=== PATIENT | male | born 1965 ===

== ENCOUNTER → 2021-11-10 | Outpatient (CLI) | payer MEDICARE ==
[~2021-11-10] MED LIST: ALPR0.5T7 PO; AMLO-250 PO; ATOR40TA70 PO; CANA100T PO; CARV12.53 PO; FLUT12AE4 IH; FURO40TA4 PO; HYDR25TA4 PO; INSU100I14 SQ; INSU100I29 SQ; LISI40TA9 PO; PANT40TA52 PO; PRED10TA22 PO
== END ==
LOC: WOUNDCARE 09:05
PROVIDERS: ATTEND Family Medicine
DX: I89.0 Lymphedema, not elsewhere classified (principal); L97.212 Non-pressure chronic ulcer of right calf with fat layer exposed; L97.221 Non-pressure chronic ulcer of left calf limited to breakdown of skin; E11.622 Type 2 diabetes mellitus with other skin ulcer; I87.333 Chronic venous hypertension (idiopathic) with ulcer and inflammation of bilateral lower extremity; E11.65 Type 2 diabetes mellitus with hyperglycemia; K70.30 Alcoholic cirrhosis of liver without ascites; F10.188 Alcohol abuse with other alcohol-induced disorder; G90.09 Other idiopathic peripheral autonomic neuropathy; E66.01 Morbid (severe) obesity due to excess calories; M62.81 Muscle weakness (generalized); Z68.43 Body mass index [BMI] 50.0-59.9, adult
CPT/HCPCS: 87070; 87205; A6197; G0463; 87077; 87186; 99215

== ENCOUNTER → 2021-11-10 | Outpatient (CLI) | payer MEDICARE ==
[2021-11-10 11:44] LABS: BASOPHILS % (AUTO) 1 % (0-10); EOSINOPHILS # (AUTO) 0.1 10^3/uL (0.0-0.3); EOSINOPHILS % (AUTO) 3 % (0-10); HEMATOCRIT 41 % (40-54); HEMOGLOBIN 13.7 g/dL (13.3-17.7); LYMPHOCYTES # (AUTO) 0.8 10^3/uL (1.0-4.0); LYMPHOCYTES % (AUTO) 16 % (12-44); MEAN CORPUSCULAR HEMOGLOBIN 32 pg (25-34); MEAN CORPUSCULAR HGB CONC 33 g/dL (32-36); MEAN CORPUSCULAR VOLUME 96 fL (80-99); MONOCYTES # (AUTO) 0.5 10^3/uL (0.0-1.0); MONOCYTES % (AUTO) 11 % (0-12); NEUTROPHILS # (AUTO) 3.3 10^3/uL (1.8-7.8); NEUTROPHILS % (AUTO) 69 % (42-75); PLATELET COUNT 311 10^3/uL (130-400); WHITE BLOOD COUNT 4.8 10^3/uL (4.3-11.0)
[2021-11-10 11:54] LABS: ALBUMIN 3.8 GM/DL (3.2-4.5); BILIRUBIN,TOTAL 0.6 MG/DL (0.1-1.0); CALCIUM 9.1 MG/DL (8.5-10.1); CREATININE SERUM 0.74 MG/DL (0.60-1.30); POTASSIUM 4.4 MMOL/L (3.6-5.0); TOTAL PROTEIN 6.6 GM/DL (6.4-8.2)
--- NOTE | 2021-11-10 17:05 | Diagnostic Imaging Report ---
PROCEDURE: US Bilateral lower extremity arterial. TECHNIQUE: Multiple real-time grayscale images are obtained through both lower extremity arterial systems with color Doppler imaging and color Doppler spectral analysis. INDICATION: Ulcerations FINDINGS: There are abnormal monophasic waveforms seen throughout the bilateral lower extremity arteries. There is abrupt decrease in velocity seen within the left posterior tibial artery. There is mild scattered plaque seen. There is diffuse subcutaneous edema seen throughout the bilateral lower extremities. Within the right groin, there is a heterogeneous lesion measuring 2.9 x 0.9 x 2.6 cm. IMPRESSION: 1. Abnormal monophasic waveforms throughout both lower extremities suggestive of a more proximal stenosis. 2. There is an abrupt decrease in velocity seen within the left posterior tibial artery which suggests an additional focal area of hemodynamically significant stenosis. 3. A 2.9 cm possibly prominent lymph node within the right groin. Dictated by: Dictated on workstation # [id number]
== END ==
LOC: LAB 11:04
PROVIDERS: ATTEND Family Medicine
DX: L97.212 Non-pressure chronic ulcer of right calf with fat layer exposed (principal); L97.221 Non-pressure chronic ulcer of left calf limited to breakdown of skin; I89.0 Lymphedema, not elsewhere classified; E11.622 Type 2 diabetes mellitus with other skin ulcer; I87.333 Chronic venous hypertension (idiopathic) with ulcer and inflammation of bilateral lower extremity; E11.65 Type 2 diabetes mellitus with hyperglycemia; K70.30 Alcoholic cirrhosis of liver without ascites; F10.188 Alcohol abuse with other alcohol-induced disorder; G90.09 Other idiopathic peripheral autonomic neuropathy; E66.01 Morbid (severe) obesity due to excess calories; M62.81 Muscle weakness (generalized)
CPT/HCPCS: 36415; 80053; 82607; 82746; 84134; 85025; 93925

== ENCOUNTER 2021-11-14 12:20 | Day surgery (SDC) | payer MEDICARE ==
[~2021-11-14] VITALS: Ht 162.6 cm; Wt 124.4 kg
[2021-11-14] VITALS (10 sets, daily range): BP systolic 149–245; BP diastolic 83–158
[2021-11-14] MEDS ORDERED: NS IV 1000 ML 1,000 ML IV SCH (12:30)
[2021-11-14] MEDS ORDERED: LIDOCAINE 1% INJ 20 ML VIAL ONE (12:30)
[2021-11-14] MEDS ORDERED: HEParin (CATH LAB) 2,000 ML IV ONE (12:31)
[2021-11-14] MEDS ORDERED: NS IV 1000 ML 1,000 ML ONE (12:31)
--- NOTE | 2021-11-14 13:03 | Diagnostic Imaging Report ---
EXAMINATION: Chest, one view. HISTORY: Heart catheterization. COMPARISON: 02/28/2020. FINDINGS: Heart size and pulmonary vasculature are normal. The lungs are clear without consolidation, pleural effusion, or pneumothorax. Surgical changes of the cervical spine. IMPRESSION: 1. No acute radiographic abnormality in the chest. Dictated by: Dictated on workstation # [id number]
[2021-11-14 13:04] LABS: HEMATOCRIT 42 % (40-54); HEMOGLOBIN 13.8 g/dL (13.3-17.7); MEAN CORPUSCULAR HEMOGLOBIN 32 pg (25-34); MEAN CORPUSCULAR HGB CONC 33 g/dL (32-36); MEAN CORPUSCULAR VOLUME 97 fL (80-99); WHITE BLOOD COUNT 5.4 10^3/uL (4.3-11.0)
[2021-11-14] MEDS ORDERED: AMLO-250 PO (13:10)
[2021-11-14] MEDS ORDERED: CANA300T PO (13:10)
[2021-11-14] MEDS ORDERED: INSU100I29 SQ (13:10)
[2021-11-14] MEDS ORDERED: FURO40TA4 PO (13:10)
[2021-11-14] MEDS ORDERED: DOXY100T2 PO (13:10)
[2021-11-14 13:15] LABS: POTASSIUM 4.5 MMOL/L (3.6-5.0)
[2021-11-14 13:16] LABS: ALBUMIN 3.9 GM/DL (3.2-4.5)
[2021-11-14 13:17] LABS: CALCIUM 9.1 MG/DL (8.5-10.1)
[2021-11-14 13:18] LABS: PROTHROMBIN TIME PATIENT 13.9 SEC (12.2-14.7); TOTAL PROTEIN 6.9 GM/DL (6.4-8.2)
[2021-11-14 13:20] LABS: BILIRUBIN,TOTAL 0.8 MG/DL (0.1-1.0)
[2021-11-14 13:22] LABS: CREATININE SERUM 0.77 MG/DL (0.60-1.30)
[2021-11-14] MEDS ORDERED: MIDAZOLAM 5 MG/5 ML (VERSED) VIAL ONE ×2 (13:30→14:45)
[2021-11-14] MEDS ORDERED: fentaNYL INJ 100 MCG/2 ML AMP ONE ×3 (13:30→16:14)
[2021-11-14 13:31] LABS: PLATELET COUNT 180 10^3/uL (130-400)
[2021-11-14] MEDS ORDERED: PATIENT MAY USE OWN MEDS, ALL PO SCH (15:30)
--- NOTE | 2021-11-14 15:32 | Discharge Inst-Post CATH ---
Discharge Inst-CATH/EP Problems Reviewed?: Yes Post Cardiac Cath/EP D/C Inst Follow Up/Plan Appointment with Dr. Romero's office in 1 month <b>CARDIAC CATH/EP PROCEDURE DISCHARGE INSTRUCTIONS</b> ACTIVITY * Go Home directly and rest. * Limit activity of the leg (or wrist if it was used) for 7 days including aerobics, swimming, jogging, bicycling, etc. * Restrict stair-climbing for 7 days if possible, if not, climb up with your non-cath leg, then bring together on the same step. * Avoid lifting, pushing, pulling or excessive movement of the affected extremity for 7 days. * Customary sexual activity may be resumed after 2 days-use caution not to use a position that strains or causes pain to the affected extremity. * No driving for 24 hours. * NO SMOKING. * Avoid straining for bowel movements for 7 days. * Gentle walking on level ground is allowed. * Returning to work will depend on the type of procedure and the results. Your doctor will discuss this with you. CALL YOUR DOCTOR FOR ANY OF THE FOLLOWING: *If bleeding from the puncture site occurs- Apply gentle pressure to site with clean cloth and call your doctor or EMS. * If a knot or lump forms under the skin, increases in size, or causes pain. * If bruising appears to be worsening or moving further down your leg instead of disappearing. * Temperature above 101 F. CARE OF YOUR GROIN INCISION; * Bruising or purple discoloration of the skin near the puncture site is common. * You may shower only, no bathtub bathing for 5 days. Be careful to avoid slipping as your leg may feel stiff. * If a closure device was used on your femoral artery, please see the attached guide regarding care of the device and your leg. * Leave dressing on FOR 24 hours. CARE OF YOUR WRIST INCISION; * Bruising or purple discoloration of the skin near the puncture site is common. * You may shower. * DO NOT submerge wrist. * Leave dressing on FOR 24 hours. MARKO ROMERO MD Nov 14, 2021 15:32
--- NOTE | 2021-11-14 15:36 | Peripheral Report ---
Peripheral Report Physician (s)/Branch Officer (s) Physician MARKO FREIRE MD Pre-Procedure Diagnosis Pre-Procedure Diagnosis: Nonhealing foot ulcers Post-Procedure Note Procedure Start Date: Nov 14, 2021 Name of Procedure: Bilateral lower extremities runoff Third order Additional imaging x 2 Findings/Procedure Note PROCEDURE NOTE: 56 years old gentleman with nonhealing ulcers, morbid obesity, BMI 64. Had an abnormal ASHLY and referred for evaluation. I scheduled him for peripheral angiogram After explaining the procedure to the patient, all pros and cons were explained, all questions were answered. The patient signed the consent and then he was placed on the cardiac catheterization laboratory. The patient was placed on the cardiac catheterization laboratory. Groin was prepped SL fashion local anesthesia was used. Sheath placed in the left femoral artery, runoff to the left leg was done through the sheath then I performed DSA imaging to the trifurcation. Rim catheter was used to cross over then a straight catheter advanced to the right common femoral artery and I did runoff to the right leg then I advanced the straight catheter down to the tibioperoneal trunk and did DSA imaging at the level of the trifurcation and then at the level of the foot. The catheter was removed and sheath was removed with closure device deployed FINDINGS: Left lower extremity: Mild to moderate disease in the left SFA and popliteal artery, DSA imaging showed good flow in the anterior and posterior tibial artery sluggish flow in the peroneal artery smaller arteries. Right lower extremity: Mild to moderate disease in the mid and distal right SFA, below the trifurcation there is mild small vessel disease nonobstructive disease down to the ankle. CONCLUSIONS: 1. Mild to moderate disease bilaterally nonobstructive disease down to the foot bilaterally with small vessel disease creating slow flow. DISCUSSION AND RECOMMENDATIONS: His nonhealing foot ulcer is probably due to small vessel disease, we discussed weight loss, starting exercise program. Maximizing medical therapy Anesthesia Type: Conscious Sedation Estimated blood loss (mL): 15 ml Contrast Amount: 60 ml Total Radiation Dose: 248 mGy Post-Procedure Diagnosis Post-operative diagnosis: Nonhealing foot ulcer Peripheral arterial disease Hypertension Hyperlipidemia MARKO FREIRE MD Nov 14, 2021 15:36
[2021-11-14] MEDS: NS IV 1000 ML 1,000 ML IV SCH (15:45)
[2021-11-14] MEDS ORDERED: hydrALAZINE (APESOLINE) 20 MG/ML VIAL ONE (16:06)
--- NOTE | 2021-11-14 16:06 | Conscious Sedation/ASA ---
Conscious Sedation Pre-Proced Time 12:30 ASA Score 3 For ASA 3 and 4: Consider anesthesia and medical clearance. Also, for patients with a history of failed moderate sedation consider anesthesia. Airway Lungs Heart ASA score ASA 1: a normal healthy patient ASA 2: a patient with a mild systemic disease (mid diabetes, controlled hypertension, obesity x ASA 3: a patient with a severe systemic disease that limits activity (angina, COPD, prior Myocardial infarction) ASA 4: a patient with an incapacitating disease that is a constant threat to life (CHF, renal failure) ASA 5: a moribund patient not expected to survive 24 hrs. (ruptured aneurysm) ASA 6: a declared brain- patient whose organs are being harvested. For emergent operations, add the letter E after the classification Mallampati Classification Grade 3 Sedation Plan Analgesia, Amnesia, Plan communicated to team members, Discussed options with patient/fam, Discussed risks with patient/fam The patient is an appropriate candidate to undergo the planned procedure, sedation, and anesthesia. The patient immediately re-assessed prior to indication. MARKO FREIRE MD Nov 14, 2021 16:06
[2021-11-14] MEDS ORDERED: hydrALAZINE (APESOLINE) 20 MG/ML VIAL IV ONE (16:15)
[2021-11-14] MEDS: fentaNYL INJ 100 MCG/2 ML AMP IVP PRN ×2 (16:17→20:38)
[2021-11-14] MEDS: lisINopril 40 MG (PRINIVIL) TABLET PO SCH (16:52)
[2021-11-14] MEDS: amLODIPine 5 MG (NORVASC) TAB PO SCH (16:52)
[2021-11-14] MEDS ORDERED: cloNIDine 0.1 MG (CATAPRES) TAB PO ONE (21:45)
[2021-11-14] MEDS ORDERED: meTOprolol 5 MG/5 ML (LOPRESSOR) VIAL IV ONE (21:45)
[2021-11-15] VITALS: BP 154/94
[2021-11-15] MEDS: fentaNYL INJ 100 MCG/2 ML AMP IVP PRN (02:34)
[2021-11-15] MEDS: NS IV 1000 ML 1,000 ML IV SCH (02:38)
[2021-11-15 04:00] VITALS: BP 159/97
[2021-11-15] MEDS: amLODIPine 5 MG (NORVASC) TAB PO SCH (07:40)
[2021-11-15] MEDS: lisINopril 40 MG (PRINIVIL) TABLET PO SCH (07:40)
[2021-11-15 08:00] VITALS: BP 169/91
[2021-11-15] MEDS ORDERED: AMLO-251 PO (08:38)
[2021-11-15] MEDS ORDERED: lisINopril 40 MG (PRINIVIL) TABLET PO SCH (09:00)
[2021-11-15] MEDS ORDERED: NON-FORMULARY MEDICATION 1 EA EA (Canagliflozin (Invokana) 300 MG) PO SCH (09:00)
[2021-11-15] MEDS ORDERED: DOXYCYCLINE 100 MG (VIBRAMYCIN) TABLET PO SCH (09:00)
[2021-11-15] MEDS ORDERED: FUROSEMIDE 40 MG (LASIX) TAB PO SCH (09:00)
[2021-11-15] MEDS ORDERED: amLODIPine 5 MG (NORVASC) TAB PO SCH (09:00)
[2021-11-15 10:00] VITALS: BP 169/91
[2021-11-15] MEDS ORDERED: inSUlin ASPART (NovoLOG) 1 UNIT/0.01 ML (CHARGE PER UNIT) SC SCH (12:00)
--- NOTE | 2021-11-15 13:46 | Cardiology Progress Note ---
Subjective Date Seen by Provider: Nov 15, 2021 Time Seen by Provider: 08:00 Subjective/Events-last exam Patient was seen and evaluated at bedside this morning He was feeling well, groin is healing well Blood pressure is poorly controlled Review of Systems General: No Chills, No Night Sweats, No Fatigue, No Malaise, No Appetite, No Other HEENT: No Head Aches, No Visual Changes, No Eye Pain, No Ear Pain, No Dysphasia, No Sinus Congestion, No Post Nasal Drip, No Sore Throat, No Other Pulmonary: No Dyspnea, No Cough, No Pleuritic Chest Pain, No Other Cardiovascular: No: Chest Pain, Palpitations, Orthopnea, Paroxysmal Noc. Dyspnea, Edema, Lt Headedness, Other Objective-Cardiology Exam Last Set of Vital Signs Vital Signs 11/15/21 10:00 Temp 36.4 Pulse 95 Resp 10 B/P (MAP) 169/91 Pulse Ox 95 O2 Delivery Room Air I&O Intake and Output 11/14/21 23:59 Intake Total 1200 ml Output Total 1100 ml Balance 100 ml Intake Oral 1200 ml Output Urine Total 1100 ml General: Alert, Oriented X3, Cooperative HEENT: Atraumatic, PERRLA Neck: Supple, No JVD, No Thyromegaly Lungs: Clear to Auscultation, Normal Air Movement Heart: Regular Rate, Normal S1, Normal S2, No Murmurs Abdomen: Normal Bowel Sounds, Soft, No Tenderness, No Hepatosplenomegaly, No Masses Extremities: No Clubbing, No Cyanosis, No Edema, Normal Pulses, No Tenderness/Swelling Skin: No Rashes, No Breakdown, No Significant Lesion Neuro: Normal Gait, Normal Speech, Strength at 5/5 X4 Ext, Normal Tone, Sensation Intact Psych/Mental Status: Mental Status NL, Mood NL A/P-Cardiology Admission Diagnosis Claudication Peripheral arterial disease Hypertension Obesity Assessment/Plan Claudication, nonhealing wounds in the lower extremities due to small vessel disease Status post peripheral angiogram showing nonobstructive disease in the lower extremities Hypertension, difficult to control Require additional medication during the hospital stay I will increase amlodipine to 10 mg daily and continue all home medications and monitor Hyperlipidemia, very minimal abnormality noted on lipid profile. Continue current medication monitor Morbid obesity, BMI 47, educated on weight loss. MARKO FREIRE MD Nov 15, 2021 13:46
== END 2021-11-15 10:00 | disposition home or self-care (01) ==
LOC: CATH 12:20 → CSD 16:08 → CATH 11-15 10:00
PROVIDERS: ATTEND Internal Medicine Cardiovascular Disease
DX: L97.509 Non-pressure chronic ulcer of other part of unspecified foot with unspecified severity (principal); I73.9 Peripheral vascular disease, unspecified; I10 Essential (primary) hypertension; E78.5 Hyperlipidemia, unspecified; I25.10 Atherosclerotic heart disease of native coronary artery without angina pectoris
CPT/HCPCS: 36247; 36248; 71045; 75716; 80053; 80061; 85027; 85610; 85730; 87081; 93005; C1760; C1769; C1887 ×2; C1894; 36415

== ENCOUNTER → 2021-12-09 | Outpatient (CLI) | payer MEDICARE ==
[~2021-12-09] MED LIST changes: +AMLO-251 PO; +CANA300T PO; +DOXY100T2 PO
== END ==
LOC: WOUNDCARE 13:03
PROVIDERS: ATTEND Family Medicine
DX: I89.0 Lymphedema, not elsewhere classified (principal); I87.333 Chronic venous hypertension (idiopathic) with ulcer and inflammation of bilateral lower extremity; E11.65 Type 2 diabetes mellitus with hyperglycemia; K70.30 Alcoholic cirrhosis of liver without ascites; F10.188 Alcohol abuse with other alcohol-induced disorder; G90.09 Other idiopathic peripheral autonomic neuropathy; E66.01 Morbid (severe) obesity due to excess calories; M62.81 Muscle weakness (generalized); Z68.43 Body mass index [BMI] 50.0-59.9, adult
CPT/HCPCS: 99213